=== PATIENT | female | born 1970 | race African-American/Black ===

== ENCOUNTER 2017-04-29 06:48 | Inpatient (IN) | payer BC ==
[~2017-04-29] VITALS: Ht 175.3 cm; Wt 85.0 kg
[2017-04-29 07:31] LABS: PLATELET COUNT 278 x10^3mcL (130-400); RED CELL DISTRIBUTION WIDTH 13.3 % (11.5-14.5)
[2017-04-29 07:37] LABS: CALCIUM 9.2 mg/dL (8.5-10.1); CARBON DIOXIDE 32.5 mmol/L (21-32); CHLORIDE SERUM 101 mmol/L (98-107); GFR1 > 60 mL/min; GLUCOSE SERUM 98 mg/dL (74-106); POTASSIUM SERUM 3.3 mmol/L (3.5-5.1); SODIUM SERUM 139 mmol/L (136-145)
[2017-04-29 07:41] LABS: ALBUMIN 3.7 g/dL (3.4-5.0); ALKALINE PHOSPHATASE 50 U/L (46-116); ALT/SGPT 23 U/L (14-59); AMYLASE 77 U/L (25-115); AST/SGOT 16 U/L (15-37); BILIRUBIN TOTAL 0.4 mg/dL (0.20-1.00); CHOLESTEROL 192 mg/dL (<200); LIPASE 85 IU/L (73-393); TOTAL PROTEIN, SERUM 7.5 g/dL (6.4-8.2)
[2017-04-29 07:42] LABS: HDL CHOLESTEROL 71 mg/dL (40-60)
[2017-04-29] MEDS ORDERED: POTASSIUM CHLO20 ME1 PO (07:46)
[2017-04-29] MEDS ORDERED: HYDROCHLOROTHIA25 MG PO (07:46)
[2017-04-29] MEDS ORDERED: CELEXA40 MG PO (07:49)
[2017-04-29 07:58] LABS: microscopic required? YES; urine erythrocyte 1+ (NEGATIVE)
[2017-04-29 08:14] LABS: AMPHETAMINE QUAL UR NONE DETECTED (NEG <=1000)
[2017-04-29 09:42] VITALS: BP 143/91
[2017-04-29 10:44] LABS: MAGNESIUM 2.1 mg/dL (1.8-2.4); PHOSPHOROUS 3.4 mg/dL (2.5-4.9)
[2017-04-29 10:53] LABS: T3 TOTAL 1.07 ng/mL
[2017-04-29 11:46] LABS: FREE T4 0.91 ng/dL (0.76-1.46); T4(THYROXINE) 8.2 ug/dL (4.7-13.3)
[2017-04-29 17:13] VITALS: BP 129/81
[2017-04-29 20:41] VITALS: BP 151/90
[2017-04-30 05:41] VITALS: BP 134/86
[2017-04-30 07:39] LABS: CALCIUM 9.1 mg/dL (8.5-10.1); CARBON DIOXIDE 28.9 mmol/L (21-32); CHLORIDE SERUM 103 mmol/L (98-107); CREATININE SERUM 0.9 mg/dL (0.6-1.0); GFR1 > 60 mL/min; GLUCOSE SERUM 109 mg/dL (74-106); PHOSPHOROUS 3.5 mg/dL (2.5-4.9); POTASSIUM SERUM 3.3 mmol/L (3.5-5.1); SODIUM SERUM 138 mmol/L (136-145)
[2017-04-30 08:39] LABS: BASOPHIL % 1.1 % (0-2); PLATELET COUNT 250 x10^3mcL (130-400); RED CELL DISTRIBUTION WIDTH 13.4 % (11.5-14.5)
[2017-04-30 09:08] VITALS: BP 118/79
[2017-04-30 14:07] VITALS: BP 126/71
[2017-04-30] MEDS ORDERED: PRI20 PO (17:01)
[2017-04-30 17:07] VITALS: BP 126/71
[2017-04-30 17:08] VITALS: BP 141/81
== END 2017-04-30 17:40 | disposition home or self-care (01) | DRG 206 ==
LOC: ED 06:48 → EDBEDREQ 08:41 → DU 08:41
PROVIDERS: Emergency Medicine; ADMIT Family Medicine Sports Medicine
DX: M94.0 Chondrocostal junction syndrome [Tietze] (principal); E87.6 Hypokalemia; I10 Essential (primary) hypertension; D64.9 Anemia, unspecified; F32.9 Major depressive disorder, single episode, unspecified; F12.10 Cannabis abuse, uncomplicated; Z68.27 Body mass index [BMI] 27.0-27.9, adult
CPT/HCPCS: 83880; 84439; 90658; J7030; Q0092

== ENCOUNTER 2018-09-18 13:09 | Emergency (ER) | payer BC ==
[~2018-09-18] VITALS: Ht 170.2 cm; Wt 87.1 kg
[~2018-09-18 13:09] MED LIST: CELEXA40 MG PO; HYDROCHLOROTHIA25 MG PO; POTASSIUM CHLO20 ME1 PO; PRI20 PO
[2018-09-18 13:26] VITALS: Ht 170.2 cm; Wt 87.1 kg
[2018-09-18 16:53] VITALS: BP 125/87
[2018-09-18 16:54] LABS: ALBUMIN 4.1 g/dL (3.4-5.0); ALKALINE PHOSPHATASE 49 U/L (46-116); ALT/SGPT 39 U/L (14-59); AST/SGOT 31 U/L (15-37); BILIRUBIN TOTAL 0.31 mg/dL (0.20-1.00); CALCIUM 9.2 mg/dL (8.5-10.1); CARBON DIOXIDE 37.2 mmol/L (21-32); CHLORIDE SERUM 102 mmol/L (98-107); CREATININE SERUM 0.8 mg/dL (0.6-1.0); GFR1 > 60 mL/min; GLUCOSE SERUM 98 mg/dL (74-106); LIPASE 128 IU/L (73-393); SODIUM SERUM 144 mmol/L (136-145)
[2018-09-18 17:01] LABS: TOTAL PROTEIN, SERUM 8.3 g/dL (6.4-8.2)
[2018-09-18 17:02] LABS: POTASSIUM SERUM 2.9 mmol/L (3.5-5.1)
[2018-09-18 17:18] LABS: BASOPHIL % 0.8 % (0-2); PLATELET COUNT 281 x10^3mcL (130-400); RED CELL DISTRIBUTION WIDTH 13.4 % (11.5-14.5)
== END 2018-09-18 17:43 | disposition home or self-care (01) ==
LOC: ED 13:09
PROVIDERS: Emergency Medicine
DX: J11.1 Influenza due to unidentified influenza virus with other respiratory manifestations (principal); E87.6 Hypokalemia; D72.819 Decreased white blood cell count, unspecified; I10 Essential (primary) hypertension; Z98.890 Other specified postprocedural states; Z88.8 Allergy status to other drugs, medicaments and biological substances
CPT/HCPCS: 36415; 87804

== ENCOUNTER 2018-12-30 12:27 | Emergency (ER) | payer BC ==
[~2018-12-30] VITALS: Ht 175.3 cm; Wt 84.4 kg
[2018-12-30 12:32] VITALS: Ht 175.3 cm; Wt 84.4 kg
[2018-12-30 12:56] LABS: BASOPHIL % 0.7 % (0-2); PLATELET COUNT 352 x10^3mcL (130-400); RED CELL DISTRIBUTION WIDTH 13.5 % (11.5-14.5)
[2018-12-30 13:01] LABS: CALCIUM 10.2 mg/dL (8.5-10.1); CREATININE SERUM 1.1 mg/dL (0.6-1.0); POTASSIUM SERUM 3.3 mmol/L (3.5-5.1)
[2018-12-30 13:06] LABS: BILIRUBIN TOTAL 0.36 mg/dL (0.20-1.00); TOTAL PROTEIN, SERUM 7.8 g/dL (6.4-8.2)
[2018-12-30 13:48] LABS: UA SPECIFIC GRAVITY 1.025 (1.005-1.035); microscopic required? YES; urine erythrocyte 1+ (NEGATIVE)
[2018-12-30 15:53] VITALS: BP 159/100
== END 2018-12-30 15:53 | disposition home or self-care (01) ==
LOC: ED 12:27
PROVIDERS: Emergency Medicine
DX: K59.00 Constipation, unspecified (principal); R19.7 Diarrhea, unspecified; E87.6 Hypokalemia; D25.9 Leiomyoma of uterus, unspecified; B35.9 Dermatophytosis, unspecified; I10 Essential (primary) hypertension; F12.90 Cannabis use, unspecified, uncomplicated; Z98.890 Other specified postprocedural states; Z88.8 Allergy status to other drugs, medicaments and biological substances
CPT/HCPCS: J1885; J2405; J7030; Q9967